=== PATIENT | female | born 1975 | race Caucasian/White ===

== ENCOUNTER 2022-08-16 15:40 | Emergency (ER) | payer OTHER, SELFPAY ==
[2022-08-16 15:51] VITALS: BP 181/97; PULSE 115; RESP 20; TEMP 36.4; O2SAT 99
[2022-08-16 15:57] LABS: Glucose Point of Care 259 mg/dl (65-105)
[2022-08-16 16:00] LABS: Glucose Point of Care 271 mg/dl (65-105)
[2022-08-16 16:12] LABS: Alveolar/Arterial O2 Gradient 19.9 mmHg; Carboxyhemoglobin 0.8 % THb (0-2.0); Fractional Inspired Oxygen 21 %; HCO3 ABG 20.5 mEq/l (22.0-26.0); Methemoglobin ABG 0.2 %THb (0-1.5); Oxygen Content ABG 18.6 %vol (16.0-22.0); Oxygen Saturation ABG 97.2 % (95.0-100.0); Oxyhemoglobin 95.7 % THb (90.0-100.0); PCO2 ABG 32.3 mmHg (35.0-45.0); PO2 ABG 91.2 mmHg (80.0-100.0); PO2 FiO2 Ratio Arterial Blood 4.34 %; Reduced Hemoglobin 3.3 %THb (0-5.0); Total Hemoglobin 13.8 g/dL (12.0-18.0)
[2022-08-16 16:14] LABS: Modified Allen's Test Pass; Site Drawn RIGHT RADIAL
[2022-08-16 16:15] LABS: Basophils Absolute Auto 0.1 K/mm3 (0.0-0.1); Eosinophils Absolute Auto 0.2 K/mm3 (0-0.3); Eosinophils Percent Auto 2.2 % (0-4.4); Hemoglobin 14.7 g/dL (12.0-15.0); Immature Granulocyte Absolute 0.05 K/mm3 (0.00-0.031); Immature Granulocyte Percent A 0.6 % (0-0.5); Lymphocytes Absolute Auto 1.83 K/mm3 (0.9-3.2); Lymphocytes Percent Auto 22.3 % (18.3-44.2); Mean Corpuscular Hemoglobin 23.2 pg (26-34); Mean Corpuscular Volume 72.7 fl (80-100); Mean Platelet Volume 10.6 fl (7.4-10.4); Monocytes Absolute Auto 0.5 K/mm3 (0.1-0.6); Monocytes Percent Auto 5.7 % (2.6-8.5); Neutrophils Absolute Auto 5.6 K/mm3 (1.3-6.7); Neutrophils Percent Auto 68.2 % (45.5-73.1); Platelet Count Result 224 k/mm3 (150-375); Red Blood Count 6.33 M/mm3 (4.2-5.4); Red Cell Distribution Width 16.6 % (11.5-14.5); White Blood Count 8.2 K/mm3 (4.5-10.0)
[2022-08-16] MEDS: SODIUM CHLORIDE 0.9% IV 1,000 ML 999 ML IV CONT (16:22)
[2022-08-16 16:25] LABS: Platelet Estimate Adequate (Adequate)
[2022-08-16 16:26] LABS: Microcytosis 1+ (NORMAL); Ovalocytes 1+ (NORMAL); Schistocytes None Seen (NORMAL)
[2022-08-16 16:34] LABS: Beta-Hydroxybutyrate/Acetoacetate 0.79 mmol/L (0.02-0.27)
[2022-08-16 16:40] LABS: Appearance Urine Clear (Clear); Bacteria Urine Rare /hpf; Bilirubin Urine Negative (Negative); Blood Urine Negative (Negative); Color Urine Yellow (Yellow); Glucose Urine UA 2+ mg/dL (Negative); Ketones Urine Trace mg/dL (Negative); Leukocyte Esterase Ur 1+ LEU/UL (Negative); Nitrate Urine Negative (Negative); Non Pathogenic Casts 0-2; Protein Urine Negative (Negative); RBC Urine 0-2 /hpf (0-2); Specific Grav Ur 1.011 (1.001-1.035); Squamous Epithelial Cell Urine None seen /hpf (Few); Urobilinogen Urine 0.2 mg/dL (<2.0); WBC Urine 21-50 /hpf
[2022-08-16 16:41] LABS: Add Urine Microscopic? YES
[2022-08-16 16:56] VITALS: BP 158/95; PULSE 100; RESP 17; O2SAT 99
--- NOTE | 2022-08-16 17:16 | ED.GENADULT ---
HPI - General Adult General Chief complaint: Recheck/Abnormal Lab/Rx Stated complaint: elevated A1C Time Seen by Provider: 08/16/22 15:51 Source: patient and family Mode of arrival: wheelchair Limitations: no limitations History of Present Illness HPI narrative: 46-year-old insulin-dependent diabetic , sent from the doctor's office with a elevated hemoglobin A1c of 13. Patient's mom who is at the bedside states that she stopped taking insulin for last several months. Patient also states that she has not been checking her sugars. Mom states that she has been extremely depressed since her sister with a diabetic complication in the month of March. Patient presently denies any fever. No history of nausea, vomiting. Complains of back pain which is ongoing issue. Onset (ago): unknown Related Data Allergies Allergy/AdvReac Type Severity Reaction Status Date / Time buspirone Allergy Unknown Verified 09/05/10 17:10 STEROIDS AdvReac Severe PSYCHOSIS Uncoded 03/01/16 12:19 Review of Systems Review of Systems: All systems reviewed & are unremarkable except as noted in HPI and below Constitutional: Constitutional: Reports no additional constitutional complaints Eyes: Eyes: Reports no additional eye complaints ENT: Reports system reviewed and no additional complaints, except as documented Cardiovascular: Cardiovascular: Reports no additional cardiovascular complaints Respiratory: Respiratory: Reports no additional respiratory complaints Gastrointestinal: Gastrointestinal: Reports no additional gastrointestinal complaints Musculoskeletal: Musculoskeletal: Reports as per HPI Neurologic: Reports system reviewed and no additional complaints, except as documented [facility] Family History Family History (Updated 10/21/15 @ 23:19 by DOCTOR UNKNOWN) Father Family history of diabetes mellitus in first degree relative Sibling Family history of diabetes mellitus in first degree relative Mother Family history of coronary artery disease Grandparent Diabetes mellitus Exam Narrative: GENERAL: Well-appearing, well-nourished, and in no acute distress. HEAD: Normocephalic, atraumatic. EYES: PERRLA and EOMI. NECK: Supple. CHEST: Clear to auscultation. No respiratory distress. HEART: Regular rate and rhythm. No murmur heard. Normal peripheral pulses. ABDOMEN: Soft, nontender, nondistended, normal active bowel sounds. EXTREMITIES: Normal range of motion. No edema. SKIN: Warm, dry, no rash. NEURO: No focal deficits. Alert and oriented x3. PSYCH: Normal mood and affect. Course Course Emergency Course: She was was given IV fluids labs were drawn her blood sugar here is 239. She is not in DKA at this time. However she has elevated hemoglobin A1c patient was advised and recommended to take insulin as prescribed. I did discuss with her nurse practitioner about her lab work. She will be discharged from the ER . Vital Signs Vital signs: Vital Signs Temperature 36.4 C L 08/16/22 15:51 Pulse Rate 115 H 08/16/22 15:51 Respiratory Rate 20 08/16/22 15:51 Blood Pressure 181/97 H 08/16/22 15:51 Pulse Oximetry 99 08/16/22 15:51 Oxygen Delivery Room Air 08/16/22 15:51 Temperature 36.4 C L 08/16/22 15:51 Pulse Rate 100 08/16/22 16:56 Respiratory Rate 17 08/16/22 16:56 Blood Pressure 158/95 H 08/16/22 16:56 Pulse Oximetry 99 08/16/22 16:56 Oxygen Delivery Room Air 08/16/22 15:51 Medical Decision Making [facility] Narrative Medical decision making narrative: 46-year-old with a history of diabetes noncompliant with her medication regimen was sent in for elevated hemoglobin A1c patient is alert awake in no distress. We will check labs start IV fluids Vital Signs Vital Signs: Vital Signs Temperature 36.4 C L 08/16/22 15:51 Pulse Rate 115 H 08/16/22 15:51 Respiratory Rate 20 08/16/22 15:51 Blood Pressure 181/97 H 08/16/22 15:51 Pulse Oximetry 99 08/16/22 15:51
[2022-08-16 17:48] LABS: Alanine Aminotransferase 21 U/L (6-35); Albumin Level 3.9 g/dL (3.5-5.1); Alkaline Phosphatase 74 U/L (38-126); Anion Gap 8 mmol/L (8-16); Aspartate Amino Transferase 27 U/L (14-36); Bilirubin,Total 0.5 mg/dL (0.2-1.3); Blood Urea Nitrogen 8 mg/dL (7-17); Calcium 8.5 mg/dL (8.4-10.2); Carbon Dioxide 21 mmol/L (22-30); Chloride 107 mmol/L (98-107); Estimated CRCL calculation 181 ml/min; Estimated Glomerular Filt Rate > 60; Glucose 242 mg/dL (65-110); Magnesium 1.8 mg/dL (1.6-2.3); Phosphorus 3.1 mg/dL (2.5-4.5); Potassium 3.7 mmol/L (3.4-5.0); Sodium 136 mmol/L (137-145)
[2022-08-16 18:30] VITALS: BP 149/97; PULSE 97; RESP 16; O2SAT 99
== END 2022-08-16 18:35 | disposition home or self-care (01) ==
PROVIDERS: Emergency Provider Family Medicine; PCP Nurse Practitioner Family
DX: E11.65 Type 2 diabetes mellitus with hyperglycemia (principal); T38.3X6A Underdosing of insulin and oral hypoglycemic [antidiabetic] drugs, initial encounter; Z91.128 Patient's intentional underdosing of medication regimen for other reason; R82.998 Other abnormal findings in urine
CPT/HCPCS: 36415; 36600; 80053; 81001; 81025; 82010; 82375; 82805; 82948; 83050; 83735; 84100; 85025; 87086; 87088; 87147; 96360; 99283; J7030

== ENCOUNTER 2023-01-18 11:23 | Emergency (ER) | payer OTHER, SELFPAY ==
--- NOTE | ~2023-01-18 | US_ITS ---
US right upper quadrant INDICATION: Right upper quadrant pain PROCEDURE: Realtime right upper abdominal ultrasound. COMPARISON: No prior studies for comparison. FINDINGS: The pancreas is normal without focal mass or pancreatic ductal dilation. Liver echotexture is normal without focal mass or intrahepatic biliary dilatation. There is normal directional flow i n the portal vein. The gallbladder is normal without stones, gallbladder wall thickening or pericholecystic fluid. Comm on bile duct measures 3 mm. No sonographic Puente's sign. IMPRESSION: 1: Normal limited abdominal ultrasound. Reviewed, dictated and finalized at location B.
--- NOTE | ~2023-01-18 | XR_ITS ---
XR lumbar spine 2-3V 01/18/2023 12:37 Indication: Back pain Procedure: 2 views lumbar spine Comparison: 05/27/2017 Findings: There is mild disc narrowing at L5-S1. Vertebral body heights are maintained. No fracture, subluxation or spondylolisthesis. Pedicles intact. Sacral foramen are symmetric. Impression: 1: Mild lumbar spondylosis. Reviewed, dictated and finalized at location B. Impression: 1: Mild lumbar spondylosis.
[2023-01-18 11:25] VITALS: BP 148/80; PULSE 74; RESP 20; TEMP 36.8; O2SAT 100
--- NOTE | 2023-01-18 11:39 | ECG_ITS ---
Measurements Intervals [place] Rate: 73 P: 16 MI: 142 QRS: 46 QRSD: 86 T: 52 QT: 364 QTc: 402 Interpretive Statements SINUS RHYTHM LOW QRS VOLTAGE IN PRECORDIAL LEADS [QRS DEFLECTION < 1.0 mV IN CHEST LEADS] OTHERWISE UNREMARKABLE ECG NO PREVIOUS ECG AVAILABLE FOR COMPARISON Electronically Signed On 01-18-2023 15:13:56 CDT by Jose De Jesus Durand M.D.
[2023-01-18 12:05] LABS: Basophils Absolute Auto 0.1 K/mm3 (0.0-0.1); Eosinophils Absolute Auto 0.3 K/mm3 (0-0.3); Eosinophils Percent Auto 3.6 % (0-4.4); Hematocrit 38.3 % (37.0-47.0); Hemoglobin 12.5 g/dL (12.0-15.0); Immature Granulocyte Absolute 0.04 K/mm3 (0.00-0.031); Immature Granulocyte Percent A 0.4 % (0-0.5); Lymphocytes Absolute Auto 1.81 K/mm3 (0.9-3.2); Lymphocytes Percent Auto 20.3 % (18.3-44.2); Mean Corpuscular HGB Conc 32.6 g/dl (32-36); Mean Corpuscular Hemoglobin 25.6 pg (26-34); Mean Corpuscular Volume 78.5 fl (80-100); Mean Platelet Volume 11.6 fl (7.4-10.4); Monocytes Absolute Auto 0.6 K/mm3 (0.1-0.6); Neutrophils Percent Auto 67.7 % (45.5-73.1); Platelet Count Result 261 k/mm3 (150-375); Red Blood Count 4.88 M/mm3 (4.2-5.4); Red Cell Distribution Width 12.9 % (11.5-14.5); White Blood Count 8.9 K/mm3 (4.5-10.0)
[2023-01-18 12:06] LABS: Alanine Aminotransferase 23 U/L (6-35); Albumin Level 3.9 g/dL (3.5-5.1); Alkaline Phosphatase 60 U/L (38-126); Anion Gap 11 mmol/L (8-16); Aspartate Amino Transferase 25 U/L (14-36); Bilirubin,Total 0.6 mg/dL (0.2-1.3); Blood Urea Nitrogen 12 mg/dL (7-17); Calcium 8.7 mg/dL (8.4-10.2); Carbon Dioxide 18 mmol/L (22-30); Chloride 106 mmol/L (98-107); Estimated CRCL calculation 149 ml/min; Estimated Glomerular Filt Rate > 60; Glucose 294 mg/dL (65-110); Potassium 4.1 mmol/L (3.4-5.0); Sodium 135 mmol/L (137-145)
--- NOTE | 2023-01-18 12:22 | ED.GENADULT ---
HPI - General Adult General Chief complaint: Abdominal Pain Stated complaint: flank pain Time Seen by Provider: 01/18/23 12:01 History of Present Illness HPI narrative: Patient is a 47-year-old female who presents ER with reports of abdominal pain and back pain. Reports she has had a couple months of low back pain is worse with physical movement. Over the last week she has developed worsening pain from her abdomen moving into her back. Has history of gallbladder issues. No fevers or chills or sweats. She has been taking Tylenol for her discomfort. No urinary frequency urgency or dysuria. Denies diarrhea. Patient reports all things worsen her discomfort in her abdomen including eating/drinking/walking/bending. Patient has had no trauma to her back or abdomen. Related Data Allergies Allergy/AdvReac Type Severity Reaction Status Date / Time buspirone Allergy Unknown Unknown Verified 01/18/23 11:34 aripiprazole [From Abilify] Allergy Jittery Verified 01/18/23 11:34 celecoxib [From Celebrex] Allergy Other Verified 01/18/23 11:34 STEROIDS AdvReac Severe PSYCHOSIS Uncoded 03/01/16 12:19 Review of Systems Review of Systems: All systems reviewed & are unremarkable except as noted in HPI and below Constitutional: Constitutional: Denies chills, Reports fatigue and Denies fever(s) ENT: Denies nasal congestion and Denies sore throat Cardiovascular: Cardiovascular: Reports no additional cardiovascular complaints Respiratory: Respiratory: Reports no additional respiratory complaints Gastrointestinal: Gastrointestinal: Reports abdominal pain, Denies diarrhea, Denies nausea and Denies vomiting Genitourinary: Genitourinary: Denies nocturia, Denies dysuria, Denies pelvic pain and Reports flank pain [facility] Past Medical History Medical History (Updated 01/18/23 @ 15:35 by Osei Cook MD) Anxiety Asthma Depression Diabetes Hypercholesterolemia Hypertension Lymphedema due to chronic inflammation Psoriasis Surgical History Surgical History (Updated 01/18/23 @ 12:23 by Osei Cook MD) History of tonsillectomy Family History Family History (Updated 10/21/15 @ 23:19 by DOCTOR UNKNOWN) Father Family history of diabetes mellitus in first degree relative Sibling Family history of diabetes mellitus in first degree relative Mother Family history of coronary artery disease Grandparent Diabetes mellitus Exam Narrative: GENERAL: Chronically ill-appearing, poor hygiene, and in no acute distress. HEAD: Normocephalic, atraumatic. EYES: Limited eyesight from cataracts ENT: Mucous membranes moist. CHEST: Clear to auscultation. No respiratory distress. HEART: Regular rate and rhythm. Normal peripheral pulses. ABDOMEN: Soft, nontender, nondistended. Back: Midline tenderness near L1/L2 without paraspinal muscle tenderness. No step-offs of the T/L-spine. No bruising or abrasions. EXTREMITIES: Normal range of motion. Chronic 2+ edema. SKIN: Warm, dry, excoriations to the upper extremities bilaterally from patient scratching herself. NEURO: Alert and oriented x3. Course Vital Signs Vital signs: Vital Signs Temperature 98.2 F 01/18/23 11:25 Pulse Rate 74 01/18/23 11:25 Respiratory Rate 20 01/18/23 11:25 Blood Pressure 148/80 H 01/18/23 11:25 Pulse Oximetry 100 01/18/23 11:25 Oxygen Delivery Room Air 01/18/23 11:25 Temperature 98.2 F 01/18/23 11:25 Pulse Rate 74 01/18/23 15:49 Respiratory Rate 14 01/18/23 15:49 Blood Pressure 111/76 01/18/23 15:49 Pulse Oximetry 100 01/18/23 15:49 Oxygen Delivery Room Air 01/18/23 11:25 Medical Decision Making Vital Signs Vital Signs: Vital Signs Temperature 98.2 F 01/18/23 11:25 Pulse Rate 74 01/18/23 11:25 Respiratory Rate 20 01/18/23 11:25 Blood Pressure 148/80 H 01/18/23 11:25 Pulse Oximetry 100 01/18/23 11:25 Oxygen Delivery Room Air 01/18/23 11:25 Temperature 98.2 F
[2023-01-18 14:00] VITALS: PULSE 80; RESP 17; O2SAT 100
[2023-01-18 14:01] VITALS: BP 142/86; PULSE 78; RESP 16; O2SAT 100
[2023-01-18] MEDS: fentaNYL CITRATE INJ (*CRX) 100 MCG/2 ML VIAL 50 MCG IV PUSH (14:02)
[2023-01-18 14:06] LABS: Appearance Urine Turbid (Clear); Bacteria Urine 1+ /hpf; Bilirubin Urine Negative (Negative); Blood Urine Negative (Negative); Color Urine Yellow (Yellow); Glucose Urine UA Trace mg/dL (Negative); Ketones Urine Negative (Negative); Leukocyte Esterase Ur 2+ LEU/UL (Negative); Nitrate Urine Negative (Negative); Non Pathogenic Casts 0-2; Protein Urine Negative (Negative); RBC Urine 0-2 /hpf (0-2); Specific Grav Ur 1.014 (1.001-1.035); Squamous Epithelial Cell Urine None seen /hpf (Few); WBC Urine 21-50 /hpf
[2023-01-18 14:08] LABS: Add Urine Microscopic? YES
[2023-01-18 15:49] VITALS: BP 111/76; PULSE 74; RESP 14; O2SAT 100
== END 2023-01-18 15:49 | disposition home or self-care (01) ==
PROVIDERS: Preventive Medicine Aerospace Medicine; Emergency Provider Emergency Medicine; PCP Nurse Practitioner Family
DX: N39.0 Urinary tract infection, site not specified (principal); M54.50 Low back pain, unspecified; E11.9 Type 2 diabetes mellitus without complications; I10 Essential (primary) hypertension
CPT/HCPCS: 36415; 72100; 76705; 80053; 81001; 81025; 85025; 87086; 87088; 87147; 93005; 96374; 99284; J3010